=== PATIENT | female | born 1990 | race Caucasian/White ===

== ENCOUNTER 2016-05-29 17:40 | Inpatient (IN) | payer OTHER ==
[2016-05-29 18:17] VITALS: BMI 30.4
[2016-05-29] MEDS ORDERED: TUBERCULIN PPD 5 TU/0.1ML SYRINGE (IN PATIENT USE ONLY) ID ONE (18:30)
[2016-05-29 18:36] LABS: BASOPHIL 0.3 % (0-2.0); EOSINOPHIL 0.8 % (0-4.5); MCH 27.3 pg (25.7-33.7); MCHC 33.8 g/dl (32.0-36.0); MEAN CELL VOLUME 80.7 fl (80-96); MEAN PLT VOLUME 8.1 fl (7.5-11.1); NEUTROPHILS 75.1 % (42.8-82.8); PLATELET COUNT 322 K/MM3 (134-434); RDW 15.1 % (11.6-15.6); WHITE BLOOD COUNT 8.5 K/mm3 (4.0-10.0)
[2016-05-29] MEDS ORDERED: ELECTROLYTE-148 SOLN 1,000 ML IV SCH (18:45)
[2016-05-29 19:23] LABS: INR 1.03 (0.82-1.09); PROTHROMBIN TIME (PATIENT) 11.3 SEC (9.98-11.88)
[2016-05-29 19:26] LABS: ACTIVATED PTT 29.2 SECONDS (26.9-34.4)
[2016-05-29 19:37] LABS: CALCIUM 8.7 mg/dL (8.5-10.1); CREATININE 0.4 mg/dL (0.55-1.02)
[2016-05-29] MEDS ORDERED: PROMETHAZINE HCL 25 MG/1 ML VIAL IVPUSH ONE (20:20)
[2016-05-29] MEDS ORDERED: BUTORPHANOL TARTRATE 1 MG/ML VIAL IVPB ONE (20:20)
[2016-05-29] MEDS ORDERED: OXYTOCIN 15 UNITS/ LR 250 ML 250 ML IVPB SCH (20:30)
--- NOTE | 2016-05-29 20:31 | HP ---
Past Medical History - Admission Chief Complaint: Here for labor induction History of Present Illness: 25 y/o with SIUP at 39.1 weeks gestation here for elective labor induction. EDC 06/04/16 by LMP consistent with 1st trimester ultrasound. Pt with uncomplicated . H/O asthma - well controlled with albuterol PRN. H/O normal in 2014 and h/o SAB in 2012. GBS negative, HIV negative. No other complaints. +FM, occasional cramping, no VB. Cervix was 4cm dilated on . History Source: Patient, Medical Record Limitations to Obtaining History: No Limitations - Past Medical History SCRAP SEPARATOR: No: CVA, Migraine Cardiovascular: No: HTN Pulmonary: Yes: Asthma (well controlled). No: COPD Gastrointestinal: No: Constipation, GERD, Inflamatory Bowel Disease Hepatobiliary: No: Hepatitis B, Hepatitis C Renal/: No: Hematuria, Neurogenic Bladder Reproductive: No: Ectopic , Fibroids, PID ...: 3 ...Para: 1 ...Term: 1 ...: 0 ...Spon : 1 ...Induced : 0 ...Multiple Gestation: 0 ...LMP: 08/29/15 ... Weeks Gestation by Dates: 0 ...EDC by Dates: 06/07/16 ...EDC by Sono: 06/04/16 Heme/Onc: No: Anemia Infectious Disease: No: AIDS, HIV, MRSA, STD's Psych: No: Anxiety, Bipolar, Depression Endocrine: No: Diabetes Mellitus, Hyperthyroidism - Past Surgical History Past Surgical History: Yes: None Hx Myomectomy: No Hx Transabdominal Cerclage: No - Smoking History Smoking history: Never smoked Have you smoked in the past 12 months: No Aproximately how many cigarettes per day: 0 - Alcohol/Substance Use Hx Alcohol Use: No History of Substance Use: reports: None - Social History Usual Living Arrangement: Yes: With Spouse ADL: Independent History of Recent Travel: No Home Medications - Allergies Allergies/Adverse Reactions: Allergies Allergy/AdvReac Type Severity Reaction Status Date / Time egg Allergy Hives Verified 05/29/16 18:08 Penicillins Allergy Hives Verified 05/29/16 18:08 shellfish derived Allergy Hives Verified 05/29/16 18:08 - Home Medications Home Medications: Ambulatory Orders Ferrous Sulfate 325 mg PO BID 05/29/16 Vit/Iron Fumarate/FA [ Tablet] 1 each PO DAILY 05/29/16 Review of Systems - Review of Systems Constitutional: reports: No Symptoms Eyes: reports: No Symptoms HENT: reports: No Symptoms Neck: reports: No Symptoms Cardiovascular: reports: No Symptoms Respiratory: reports: No Symptoms Gastrointestinal: reports: No Symptoms Genitourinary: reports: No Symptoms Breasts: reports: No Symptoms Reported Musculoskeletal: reports: No Symptoms Integumentary: reports: No Symptoms Neurological: reports: No Symptoms Endocrine: reports: No Symptoms Hematology/Lymphatic: reports: No Symptoms Psychiatric: reports: No Symptoms Physical Exam - Maternity Vital Signs: Vital Signs Temperature 97.6 F 05/29/16 19:00 Pulse Rate 78 05/29/16 19:00 Respiratory Rate 20 05/29/16 18:11 Blood Pressure 118/72 05/29/16 19:00 O2 Sat by Pulse Oximetry (%) Constitutional: Yes: Well Nourished, No Distress, Calm Eyes: Yes: Conjunctiva Clear, EOM Intact HENT: Yes: Atraumatic, Normocephalic Neck: Yes: Supple, Trachea Midline Cardiovascular: Yes: Regular Rate and Rhythm Lungs: Clear to auscultation - Abdominal Exam/OB Fundal Height: 40 Number of Fetuses: Single Presentation: Vertex Contractions: Yes Regularity: Irregular Intensity: Mild Monitor Mode: External Heart Rate (range): 150 Category: I Accelerations: Uniform Decelerations: None - Vaginal Exam/OB Dilatation (cm): 5 Effacement (%): 60 Amniotic Membrane Status: Ruptured (AROM for clear fluid) Presentation: Vertex/Position Station: -2 - Physical Exam Musculoskeletal: Yes: WNL Extremities: Yes: WNL Edema: No Psychiatric: Yes: Alert, Oriented - Labs Lab Results: CBC, BMP 05/29/16 17:45 05/29/16 17:45 Hemorrhage Risk Assessment - Risk Factors Medium Risk Factors: Yes: None High Risk Factors: Yes: None Risk Score: 1 Risk Level: Medium Risk Problem List - Problems (1) Term Code(s): Z34.80 - ENCOUNTER FOR SUPRVSN OF NORMAL , UNSP TRIMESTER Assessment/Plan 25 y/o with SIUP at 39.1 weeks gestation, for labor induction - FHTs cat 1 - labor induction, AROM for clear fluid, to start pitocin. Epidural/analgesia prn. - GBS negative - anticipate
[2016-05-29] MEDS ORDERED: METHYLERGONOVINE MALEATE 0.2 MG/1 ML AMP IM PRN (23:41)
[2016-05-29] MEDS ORDERED: BISACODYL 10 MG SUPP.RECT RC PRN (23:41)
[2016-05-29] MEDS ORDERED: BENZOCAINE 28 GM HEMORRHOIDAL OINTMENT TP PRN (23:41)
[2016-05-29] MEDS ORDERED: WITCH HAZEL 50% (TUCKS) 40 PAD/JAR PAD TP PRN (23:41)
[2016-05-29] MEDS ORDERED: BENZOCAINE 20% 57 GM BOTTLE TP PRN (23:41)
[2016-05-29] MEDS ORDERED: oxyCODONE HCL 5 MG TABLET PO PRN (23:42)
[2016-05-29] MEDS ORDERED: D5W-LR W/ 20 UNITS OXYTOCIN 1,000 ML IV SCH (23:45)
--- NOTE | 2016-05-29 23:46 | PN ---
Delivery - Delivery Vaginal Delivery: No Problems Type of Anesthesia: Local (5cc 1% plain lidocaine injected prior to repair of periclitoral lac) Episiotomy/Laceration: Periurethral Extnsion/lac (periclitoral right laceration) EBL (cc): 300 Delivery, Single - Stages of Labor Date of Delivery: 05/29/16 Time of Delivery: 23:21 Date Placenta Delivered: 05/29/16 Time Placenta Delivered: 23:30 Placenta: Yes: Spontaneous - Condition of Staff Attorney/Toddler Teacher Present: No Gender: Female Position: Right, OA - 1 Minute Total Score: 9 5 Minutes Total Score: 9 - Feeding Plan Initial Plan: Exclusive throughout hospitalization Remarks - Remarks Remarks: Uncomplicated of baby girl from ARTIE position across intact perineum loose nuchal cord noted, reduced at perineum right shoulder (anterior) delivered with ease along with remainder of cord clamped twice, cut - 3VC noted placenta delivered in tact and spontaneously periclitoral laceration noted, repaired with 3-0 vicryl suture EBL 300 mom stable baby to well baby nursery
[2016-05-30] MEDS: IBUPROFEN 600 MG TABLET (FP) PO PRN ×3 (03:14→17:06)
[2016-05-30] MEDS: ACETAMINOPHEN 325 MG TABLET (FP) PO PRN ×3 (03:14→17:06)
[2016-05-30 07:35] LABS: BASOPHIL 0.3 % (0-2.0); EOSINOPHIL 0.4 % (0-4.5); MCH 27.4 pg (25.7-33.7); MCHC 33.4 g/dl (32.0-36.0); MEAN CELL VOLUME 82.1 fl (80-96); MEAN PLT VOLUME 8.4 fl (7.5-11.1); NEUTROPHILS 77.8 % (42.8-82.8); PLATELET COUNT 266 K/MM3 (134-434); RDW 15.2 % (11.6-15.6); WHITE BLOOD COUNT 12.5 K/mm3 (4.0-10.0)
--- NOTE | 2016-05-30 08:26 | PN ---
Post Progress Note - Subjective Subjective: Pt seen/evaluated today with no complaints. Pain controlled, tolerating diet. VB minimal. NO CP/SOB/F/C/TURCIOS. Feels well. Type of Delivery: Vital Signs: Vital Signs Temperature 99.0 F 05/30/16 08:06 Pulse Rate 76 05/30/16 08:06 Respiratory Rate 20 05/30/16 08:06 Blood Pressure 100/53 05/30/16 08:06 O2 Sat by Pulse Oximetry (%) 98 05/30/16 00:15 Uterus: Yes: Fundus Firm Abdomen/GI: Yes: Abdomen soft, Passing flatus, Tolerating PO Lochia, amount: Small Extremities: Yes: Calves non-tender Perineum: Yes: Intact Activity: Ambulating - Labs Labs: CBC WBC 12.5 K/mm3 (4.0-10.0) H D 05/30/16 05:37 RBC 3.80 M/mm3 (3.60-5.2) 05/30/16 05:37 Hgb 10.4 GM/dL (10.7-15.3) L D 05/30/16 05:37 Hct 31.2 % (32.4-45.2) L 05/30/16 05:37 MCV 82.1 fl (80-96) 05/30/16 05:37 MCHC 33.4 g/dl (32.0-36.0) 05/30/16 05:37 RDW 15.2 % (11.6-15.6) 05/30/16 05:37 Plt Count 266 K/MM3 (134-434) 05/30/16 05:37 MPV 8.4 fl (7.5-11.1) 05/30/16 05:37 Neutrophils % 77.8 % (42.8-82.8) 05/30/16 05:37 Lymphocytes % 13.1 % (8-40) D 05/30/16 05:37 Monocytes % 8.4 % (3.8-10.2) 05/30/16 05:37 Eosinophils % 0.4 % (0-4.5) 05/30/16 05:37 Basophils % 0.3 % (0-2.0) 05/30/16 05:37 Problem List - Problems (1) Term Code(s): Z34.80 - ENCOUNTER FOR SUPRVSN OF NORMAL , UNSP TRIMESTER (2) Vaginal delivery Code(s): O80 - ENCOUNTER FOR FULL-TERM UNCOMPLICATED DELIVERY Assessment/Plan 25 y/o PPD #1 s/p AFVSS Hgb 10.4 - mom stable regular diet po pain meds ambulation routine care
[2016-05-30] MEDS: FERROUS SO4 325 MG TABLET (FP) PO SCH ×2 (09:22→22:18)
[2016-05-30] MEDS: PRENATAL VITAMINS W/ FOLIC ACID TABLET (FP) PO SCH (09:22)
--- NOTE | 2016-05-30 11:56 | DS ---
Physical Exam-TYPE ROLLING MACHINE OPERATOR Vital Signs: Vital Signs Temperature 99.0 F 05/30/16 08:06 Pulse Rate 76 05/30/16 08:06 Respiratory Rate 20 05/30/16 08:06 Blood Pressure 100/53 05/30/16 08:06 O2 Sat by Pulse Oximetry (%) 98 05/30/16 00:15 Constitutional: Yes: Well Nourished, No Distress, Calm Eyes: Yes: Conjunctiva Clear, EOM Intact HENT: Yes: Atraumatic, Normocephalic Neck: Yes: Supple, Trachea Midline Cardiovascular: Yes: Regular Rate and Rhythm Respiratory: Yes: Regular, CTA Bilaterally Gastrointestinal: Yes: Normal Bowel Sounds, Soft ....Post : Yes: Uterus firm, Uterus non-tender Wound/Incision: Yes: Clean/Dry, Well Approximated Neurological: Yes: Alert, Oriented Psychiatric: Yes: Alert, Oriented Labs: CBC, BMP 05/30/16 05:37 05/29/16 17:45 Delivery - Delivery Vaginal Delivery: No Problems Type of Anesthesia: Local Episiotomy/Laceration: Periurethral Extnsion/lac (periclitoral right laceration) EBL (cc): 300 Delivery, Single - Stages of Labor Date 1st Stage Initiatied: 05/29/16 Time 1st Stage Initiated: 20:12 Date 2nd Stage Initiated: 05/29/16 Time 2nd Stage Initiated: 22:45 Date of Delivery: 05/29/16 Time of Delivery: 23:21 Time Placenta Delivered: 23:30 Placenta: Yes: Spontaneous - Condition of Infant Bean Sorter/Envelope Folder Present: No Gender: Female Weight: 7 lb 11 oz Position: Right, OA Total Hours ROM (Hrs/Mins): 3HRS/9MINS - 1 Minute Total Score: 9 5 Minutes Total Score: 9 - [place] Feeding Plan Initial Plan: Exclusive throughout hospitalization Discharge Summary Reason For Visit: INDUCTION OF LABOR Current Active Problems Term (Acute) Vaginal delivery (Acute) Procedures: Principal: normal Hospital Course: Patient admitted on 05/29/16 for labor induction. The patient underwent pitocin induction and artificial rupture of membranes. The patient then had an uncomplicated normal vaginal delivery on 05/11/16. The patient underwent a normal post recovery and was discharged home in stable condition on post day 2. Condition: Good - Instructions Diet, Activity, Other Instructions: Physical activity Resume your normal everyday activity as tolerated no heavy lifting or exercise until seen by your doctor. You may walk unlimited amounts and climb stairs. You may resume driving the car when you feel safe and comfortable behind the wheel. No sexual activity as instructed for 6 weeks. Wound care If you have stitches, they will dissolve. Do not attempt to remove them on your own. Diet There are no dietary restrictions. Eat healthy, high-fiber foods. Drink 6 to 8 glasses of liquid each day. This will assist in keeping your bowels regular. Pain management You may take Tylenol or Ibuprofen over the counter for any pain. Call MD for any of the following: Severe pain not relieved by medication Fever of 101 or higher Excessive bleeding or drainage on dressing Inability to urinate Referrals: Abbi Ca DO [Staff Physician] - (call to make an appointmetn in 6 weeks) Disposition: HOME - Home Medications Comprehensive Discharge Medication List: Ambulatory Orders Ferrous Sulfate 325 mg PO BID 05/29/16 Vit/Iron Fumarate/FA [ Tablet] 1 each PO DAILY 05/29/16
[2016-05-30] MEDS ORDERED: SENNOSIDES/DOCUSATE COMBO (SENNA PLUS) TABLET (UD) PO PRN (22:00)
[2016-05-31] MEDS: ACETAMINOPHEN 325 MG TABLET (FP) PO PRN ×2 (03:39→10:41)
[2016-05-31] MEDS: IBUPROFEN 600 MG TABLET (FP) PO PRN ×2 (03:40→10:40)
[2016-05-31] MEDS: PRENATAL VITAMINS W/ FOLIC ACID TABLET (FP) PO SCH (10:38)
[2016-05-31] MEDS: FERROUS SO4 325 MG TABLET (FP) PO SCH (10:38)
[2016-05-31 11:46] VITALS: BP 124/60; PULSE 80; TEMP 97.7
== END 2016-05-31 12:30 | disposition home or self-care (01) | DRG 560 ==
LOC: JLDR 17:40 → J3W 05-30 02:06
PROVIDERS: ADMIT Obstetrics & Gynecology; ATTEND Obstetrics & Gynecology
PROC: 10E0XZZ Delivery of Products of Conception, External Approach (ICD-10-PCS; principal; 2016-05-29)
PROC: 0W8NXZZ Division of Female Perineum, External Approach (ICD-10-PCS; 2016-05-29)
DX: O80 Encounter for full-term uncomplicated delivery (principal); Z3A.39 39 weeks gestation of pregnancy; Z37.0 Single live birth
CPT/HCPCS: 36415; 59409; 80048; 85025; 85610; 85730; 86593; 86850; 86900; 86901

== ENCOUNTER 2016-09-15 13:28 | Emergency (ER) | payer OTHER ==
[2016-09-15 13:45] VITALS: BP 138/78; TEMP 99.2; BMI 23.8
[2016-09-15] MEDS ORDERED: ACETAMINOPHEN 325 MG TABLET (FP) PO ONE (14:02)
[2016-09-15] MEDS ORDERED: ACETAMINOPHEN 325 MG TABLET (FP) ONE (14:04)
--- NOTE | 2016-09-15 14:08 | PDOC ---
History of Present Illness - General Chief Complaint: Sore Throat Stated Complaint: THROAT PAIN Time Seen by Provider: 09/15/16 14:01 History Source: Patient Exam Limitations: No Limitations - History of Present Illness Initial Comments: CHIEF COMPLAINT: 25 y/o afebrile female with no significant PMH c/o sore throat with painful swallowing since last night. HISTORY OF PRESENT ILLNESS: The patient denies f/c, n/v/d, cough, CP, SOB, abd pain, back pain, hematuria, dysuria. THe patient's daughter just got over a virus. Vital signs on arrival are notable for pulse of 104 with temp of 99.2. REVIEW OF SYSTEMS: GENERAL/CONSTITUTIONAL: No fever/chills. No weakness. No weight change. HEAD, EYES, EARS, NOSE AND THROAT: No change in vision. No ear pain or discharge. +sore throat CARDIOVASCULAR: No chest pain or shortness of breath. RESPIRATORY: No cough, wheezing, or hemoptysis. GASTROINTESTINAL: No abd pain, nausea, vomiting, diarrhea. GENITOURINARY: No dysuria, frequency, or change in urination. MUSCULOSKELETAL: No joint or muscle swelling or pain. No neck or back pain. SKIN: No rash or easy bruising. NEUROLOGIC: No headache, vertigo, loss of consciousness, or loss of sensation. PHYSICAL EXAM: GENERAL: The patient is awake, alert, and fully oriented, in no acute distress. She is very well appearing, ambulatory, in NAD or obvious discomfort. HEAD: Normal with no signs of trauma. NECK: No cervical lymphadenopathy. ENT: Pupils equal, round and reactive to light, extraocular movements intact, sclera anicteric, conjunctiva clear. Erythematous tonsils without edema or exudate. Uvula midline. No petechia. No swelling to tongue. LUNGS: Clear to auscultation bilaterally. Normal excursion. No respiratory distress or use of accessory muscles. CV: RRR, S1/S2, no MRG. Cap refill < 2 sec. ABDOMEN: Soft, non-distended, non-tender even to deep palpation, no hepatomegaly or splenomegaly, no masses. EXTREMITIES: Normal range of motion, no edema. NEUROLOGICAL: Normal speech, normal gait. CN II-XII grossly intact. PSYCH: Normal mood, normal affect. SKIN: Warm, dry, normal turgor, no rashes or lesions noted. Past History - Past Medical History Allergies/Adverse Reactions: Allergies Allergy/AdvReac Type Severity Reaction Status Date / Time egg Allergy Hives Verified 09/15/16 13:42 Penicillins Allergy Hives Verified 09/15/16 13:42 shellfish derived Allergy Hives Verified 09/15/16 13:42 Home Medications: Ambulatory Orders Ferrous Sulfate 325 mg PO BID 05/29/16 Vit/Iron Fumarate/FA [ Tablet] 1 each PO DAILY 05/29/16 Asthma: No Cancer: No Cardiac Disorders: No Diabetes: No HTN: No Seizures: No Thyroid Disease: No - Reproductive History (#): 2 Para: 0 - Psycho/Social/Smoking Cessation Hx Anxiety: No Suicidal Ideation: No Smoking History: Never smoked Have you smoked in the past 12 months: No Number of Cigarettes Smoked Daily: 0 Information on smoking cessation initiated: No Hx Alcohol Use: No Drug/Substance Use Hx: No Substance Use Type: None Hx Substance Use Treatment: No *Physical Exam - Vital Signs Last Vital Signs Temp Pulse Resp BP Pulse Ox 99.2 F 104 H 18 138/78 100 09/15/16 13:43 09/15/16 13:43 09/15/16 13:43 09/15/16 13:43 09/15/16 13:43 Medical Decision Making - Medical Decision Making A/P: 25 y/o female with sore throat since last night. Suspect possible allergies. Will send rapid strep to r/o strep. Gave PO tylenol in the ER. THe patient is breast feeding. Rapid strep - negative Gave patient the results. Suspect her sore throat is allergy related. Suggested she gargle with warm salt water, and eat soft/cold foods to help with symptoms. Pt is breast feeding and doesn't want to take medication if not needed. Suggested she also take tylenol if needed for pain, follow up with her doctor in 1 week and return to the ER with any worsening or concerning symptoms. The patient verbalizes understanding of all instructions, has no further questions and is awaiting discharge. *DC/Admit/Observation/Transfer Diagnosis at time of Disposition: Sore throat - Discharge Dispostion Disposition: HOME Condition at time of disposition: Good - Referrals Referrals: Blaire Santos MD [Primary Care Provider] - - Patient Instructions Printed Discharge Instructions: Sore Throat Additional Instructions: Discharge Instructions: -Your rapid strep test was negative -Your sore throat may be the result of seasonal allergies -You can continue taking Tylenol -Eat soft/cold foods to help with sore throat -Gargle with warm salt water multiple times per day -Follow up with your doctor next week -Return to the ER with any worsening or concerning symptoms
[2016-09-15 15:08] VITALS: PULSE 87
== END 2016-09-15 15:01 | disposition home or self-care (01) ==
LOC: JERFT 13:28
DX: J02.9 Acute pharyngitis, unspecified (principal)
CPT/HCPCS: 87070; 87430; 99281-25

== ENCOUNTER 2018-06-06 12:38 | Emergency (ER) | payer BC, OTHER ==
[2018-06-06 13:00] VITALS: BP 129/83; PULSE 89; TEMP 98.6; BMI 25.6
[2018-06-06] MEDS ORDERED: KETOROLAC TROMETHAMINE 60 MG/2 ML VIAL IM ONE (13:14)
[2018-06-06] MEDS ORDERED: KETOROLAC TROMETHAMINE 60 MG/2 ML VIAL ONE (14:11)
--- NOTE | 2018-06-06 14:23 | PDOC ---
History of Present Illness - General Chief Complaint: Pain Stated Complaint: CHEST PAIN / HEADACHE Time Seen by Provider: 06/06/18 13:08 History Source: Patient Exam Limitations: No Limitations - History of Present Illness Initial Comments: 06/06/18 14:00 27-year-old female presents to ED with complaints of frontal headache since last night and this morning took ibuprofen which then an hour later developed burning squeezing sensation to her epigastric area. Patient states no recent travel current chest pain, shortness of breath, visual changes, nausea, photosensitivity or history of migraine. Patient does complain of a pressure to her forehead . Denies irregular menses, urinary complaints fever or chills. Timing/Duration: 24 hours Severity: mild Associated Symptoms: reports: chest pain, headaches Aspirin Received prior to arrival: Yes: no aspirin today Past History - Travel Traveled outside of the country in the last 30 days: No Close contact w/someone who was outside of country & ill: No - Past Medical History Allergies/Adverse Reactions: Allergies Allergy/AdvReac Type Severity Reaction Status Date / Time egg Allergy Hives Verified 06/06/18 12:56 Penicillins Allergy Hives Verified 06/06/18 12:56 shellfish derived Allergy Hives Verified 06/06/18 12:56 Home Medications: Ambulatory Orders Ibuprofen [Advil -] 400 mg PO ONCE 06/06/18 Asthma: No Cancer: No Cardiac Disorders: No COPD: No Diabetes: No HTN: No Seizures: No Thyroid Disease: No - Reproductive History (#): 2 Para: 0 - Suicide/Smoking/Psychosocial Hx Smoking History: Never smoked Have you smoked in the past 12 months: No Number of Cigarettes Smoked Daily: 0 Hx Alcohol Use: No Drug/Substance Use Hx: No Substance Use Type: None Hx Substance Use Treatment: No Patient Lives Alone: No Lives with/in: spouse/SO Review of Systems - Review of Systems Able to Perform ROS?: No Constitutional: No: Symptoms Reported HEENTM: No: Symptoms Reported Respiratory: No: Symptoms reported ABD/GI: No: Symptoms Reported : No: Symptoms Reported Musculoskeletal: No: Symptoms Reported Integumentary: No: Symptoms Reported Neurological: Yes: Headache. No: Numbness, Paresthesia, Weakness, Dizziness Endocrine: No: Symptoms Reported Hematologic/Lymphatic: No: Symptoms Reported *Physical Exam - Vital Signs Last Vital Signs Temp Pulse Resp BP Pulse Ox 98.6 F 89 18 129/83 99 06/06/18 12:57 06/06/18 12:57 06/06/18 12:57 06/06/18 12:57 06/06/18 12:57 - Physical Exam General Appearance: Yes: Nourished, Appropriately Dressed. No: Apparent Distress HEENT: positive: EOMI, CELSO, TMs Normal, Pharynx Normal, Thrush. negative: Pale Conjunctivae Neck: positive: Normal Thyroid Respiratory/Chest: positive: Lungs Clear, Normal Breath Sounds. negative: Respiratory Distress, Accessory Muscle Use Cardiovascular: positive: Regular Rhythm, Regular Rate. negative: Murmur Gastrointestinal/Abdominal: positive: Soft. negative: Tenderness Musculoskeletal: negative: CVA Tenderness Extremity: positive: Normal Capillary Refill. negative: Pedal Edema Integumentary: positive: Normal Color, Warm, Moist Neurologic: positive: Motor Strength 5/5 Moderate Sedation - Procedure Monitoring Vital Signs: Procedure Monitoring Vital Signs Temperature 98.6 F 06/06/18 12:57 Pulse Rate 89 06/06/18 12:57 Respiratory Rate 18 06/06/18 12:57 Blood Pressure 129/83 06/06/18 12:57 O2 Sat by Pulse Oximetry (%) 99 06/06/18 12:57 Heart Score/ECG Review - ECG Intrepretation Rhythm: Regular Rhythm (rate 78 normal sinus rhythm. No ST elevation or depression) ED Treatment Course - ADDITIONAL ORDERS Additional order review: Laboratory Results 06/06/18 13:30 Urine HCG, Qual Negative Medical Decision Making - Medical Decision Making 06/06/18 14:01 Chief complaint: Headache since last night chest pain this a.m. which resolved prior to my arrival. Patient with continue complaint of frontal headache without dizziness, light sensitivity or visual changes. Exam: No acute findings , texting without visual complaints, EKG normal Plan: Toradol IM 06/06/18 14:33 She states headache has resolved. Patient to be discharged home with recommendations to take Tylenol Extra Strength if the Motrin causes epigastric pain *DC/Admit/Observation/Transfer Diagnosis at time of Disposition: Headache - Discharge Dispostion Disposition: HOME Condition at time of disposition: Improved - Referrals - Patient Instructions Printed Discharge Instructions: DI for Hormonal and Tension Headaches Additional Instructions: I recommend taking extra strength Tylenol or Motrin 600 mg for discomfort. If symptoms worsen please return to the nearest emergency room. - Post Discharge Activity
--- NOTE | 2018-06-07 14:42 | EKG ---
Test Reason : Blood Pressure : / mmHG Vent. Rate : 078 BPM Atrial Rate : 078 BPM P-R Int : 116 ms QRS Dur : 076 ms QT Int : 372 ms P-R-T Axes : 070 045 045 degrees QTc Int : 424 ms NORMAL SINUS RHYTHM NORMAL ECG NO PREVIOUS ECGS AVAILABLE Confirmed by Shamir Brown MD ([id number]) on 06/07/2018 2:42:20 PM Referred By: Confirmed By:Shamir Brown MD
== END 2018-06-06 14:37 | disposition home or self-care (01) ==
LOC: JER 12:38
DX: R51 Headache (principal)
CPT/HCPCS: 84703; 93005; 93010; 99282-25